=== PATIENT | female | born 1975 | race Caucasian/White ===

== ENCOUNTER 2017-12-21 01:05 | Emergency (ER) | payer OTHER ==
[~2017-12-21] VITALS: Ht 167.6 cm; Wt 89.5 kg
[2017-12-21 01:31] VITALS: BP 120/79; PULSE 90; RESP 18; TEMP 98.7; O2SAT 100
[2017-12-21 02:55] VITALS: BP 138/54; PULSE 90; RESP 18; O2SAT 100
[2017-12-21] MEDS ORDERED: PRIL20TA2 (02:55)
--- NOTE | 2017-12-21 03:28 | PD ---
HPI Chief Complaint: Anxiety Time Seen by Provider: 03:14 Travel History International Travel<30 days: No Contact w/Intl Traveler<30days: No Traveled to known affect area: No History of Present Illness HPI 41yo F with PMH of panic attacks here with episode of feeling like her heart is racing. Said she feels it in her whole body but not like palpation. Said she also felt hot and cold but only cold in her extremities. She took 1/4 of her xanax that she had but didnt help. Pt is not feeling shaky all over. She said she has not been eating well since her gastric bypass 8 months ago. Denies any fever, chest pain, n/v, abdominal pain, focal weakness or numbness. PFSH Past Medical History Anxiety: Yes GERD: Yes Tetanus Vaccination: Unknown Influenza Vaccination: Yes ?: Not LMP: 2 Past Surgical History Cholecystectomy: Yes Other Surgery: Yes (gastric bypass, ovarian cyst removal) Social History Alcohol Use: No Tobacco Use: No Substance Use: No Allergies-Medications (Allergen,Severity, Reaction): Coded Allergies: Sulfa (Sulfonamide Antibiotics) (Verified Allergy, Severe, Hives, 12/21/17) shellfish derived (Verified Allergy, Severe, Swelling, 12/21/17) Reported Meds & Prescriptions Reported Meds & Active Scripts Active Reported Prilosec (Omeprazole Magnesium) 20 Mg Tab Review of Systems Except as stated in HPI: all other systems reviewed are Neg Physical Exam Narrative GENERAL: 41yo F in mild distress. SKIN: Focused skin assessment warm/dry. HEAD: Atraumatic. Normocephalic. EYES: Pupils equal and round at 3mm bilaterally. EOMI. ENT: No nasal bleeding or discharge. Mucous membranes pink and moist. NECK: Trachea midline. No JVD. CARDIOVASCULAR: Regular rate and rhythm. No murmur appreciated. RESPIRATORY: No accessory muscle use. Clear to auscultation. Breath sounds equal bilaterally. GASTROINTESTINAL: Abdomen soft, non-tender, nondistended. MUSCULOSKELETAL: No obvious deformities. No clubbing. No cyanosis. No edema. NEUROLOGICAL: Awake and alert. No obvious cranial nerve deficits. Motor grossly within normal limits. Sensation intact. Normal speech. PSYCHIATRIC: Anxious. Data Data Last Documented VS Vital Signs Date Time Temp Pulse Resp B/P (MAP) Pulse Ox O2 Delivery O2 Flow Rate FiO2 12/21/17 04:41 82 16 107/49 (68) 98 Room Air 12/21/17 01:31 98.7 Orders Orders Complete Blood Count With Diff (12/21/17 03:20) Basic Metabolic Panel (Bmp) (12/21/17 03:20) Magnesium (Mg) (12/21/17 03:20) Thyroid Stimulating Hormone (12/21/17 03:20) Electrocardiogram (12/21/17 ) Lorazepam Inj (Ativan Inj) (12/21/17 03:30) Ed Discharge Order (12/21/17 04:54) Labs Laboratory Tests Test 12/21/17 03:44 White Blood Count 10.1 TH/MM3 Red Blood Count 4.03 MIL/MM3 Hemoglobin 12.4 GM/DL Hematocrit 36.0 % Mean Corpuscular Volume 89.3 FL Mean Corpuscular Hemoglobin 30.7 PG Mean Corpuscular Hemoglobin Concent 34.4 % Red Cell Distribution Width 13.0 % Platelet Count 294 TH/MM3 Mean Platelet Volume 9.6 FL Neutrophils (%) (Auto) 79.0 % Lymphocytes (%) (Auto) 13.8 % Monocytes (%) (Auto) 6.2 % Eosinophils (%) (Auto) 0.8 % Basophils (%) (Auto) 0.2 % Neutrophils # (Auto) 8.0 TH/MM3 Lymphocytes # (Auto) 1.4 TH/MM3 Monocytes # (Auto) 0.6 TH/MM3 Eosinophils # (Auto) 0.1 TH/MM3 Basophils # (Auto) 0.0 TH/MM3 CBC Comment DIFF FINAL Differential Comment Blood Urea Nitrogen 19 MG/DL Creatinine 0.61 MG/DL Random Glucose 96 MG/DL Calcium Level 9.0 MG/DL Magnesium Level 2.1 MG/DL Sodium Level 138 MEQ/L Potassium Level 3.5 MEQ/L Chloride Level 102 MEQ/L Carbon Dioxide Level 30.0 MEQ/L Anion Gap 6 MEQ/L Estimat Glomerular Filtration Rate 109 ML/MIN Thyroid Stimulating Hormone 3rd Gen 5.930 uIU/ML [facility] Medical Decision Making Medical Screen Exam Complete: Yes Emergency Medical Condition: Yes Interpretation(s) EKG: NSR 84bpm. Normal axis. No ST segment elevation or depression. Differential Diagnosis Anxiety vs. electrolyte abnormality vs. dehydration vs. hyperthyroidism Narrative Course 41yo F with anxiety symptoms. Labs reviewed, no leukocytosis. H/H normal. magnesium normal. Electrolytes normal. TSH mildly elevated at 5.93. Informed pt and instructed her to follow up with her primary care physician for T4 follow up. Pt given ativan which helped with symptoms. HR is normal. Return precautions given. Diagnosis Primary Impression: Anxiety Patient Instructions: General Instructions Departure Forms: Tests/Procedures Additional Instructions: Your TSH is 5.93 today. Please follow up with your primary care physician regarding this and obtain an outpatient T4 level. Return to the ED if symptoms worsen. Med/Other Pt SpecificInfo: No Change to Meds Disposition: 01 DISCHARGE HOME Condition: Stable ParrishAdrianna gallagherkavita COLEY Dec 21, 2017 03:28
[2017-12-21] MEDS ORDERED: LORazepam 2 MG/ML VIAL IV PUSH ONE (03:30)
[2017-12-21 03:47] VITALS: BP 112/54; PULSE 90; RESP 16; O2SAT 100
[2017-12-21 04:02] LABS: BASOPHIL % 0.2 % (0.0-2.0); EOSINOPHIL # 0.1 TH/MM3 (0-0.4); EOSINOPHIL % 0.8 % (0.0-4.0); HEMOGLOBIN 12.4 GM/DL (11.6-15.3); LYMPH % 13.8 % (9.0-44.0); LYMPHOCYTE # 1.4 TH/MM3 (1.0-4.8); MEAN CELL VOLUME 89.3 FL (80.0-100.0); MEAN CORPUSCULAR HEMOGLOBIN 30.7 PG (27.0-34.0); MEAN CORPUSCULAR HGB CONC 34.4 % (32.0-36.0); MEAN PLATELET VOLUME 9.6 FL (7.0-11.0); MONO % 6.2 % (0.0-8.0); MONOCYTE # 0.6 TH/MM3 (0-0.9); PLATELET COUNT 294 TH/MM3 (150-450); RED BLOOD COUNT 4.03 MIL/MM3 (4.00-5.30); WHITE BLOOD COUNT 10.1 TH/MM3 (4.0-11.0)
[2017-12-21 04:17] LABS: MAGNESIUM 2.1 MG/DL (1.5-2.5)
[2017-12-21 04:21] LABS: CREATININE 0.61 MG/DL (0.50-1.00)
[2017-12-21 04:41] VITALS: BP 107/49; PULSE 82; RESP 16; O2SAT 98
[2017-12-21 05:10] VITALS: BP 101/50; PULSE 87; RESP 16; O2SAT 97
--- NOTE | 2017-12-21 21:12 | EKG ---
Date Performed: 12/21/2017 Time Performed: 03:48:18 PTAGE: 41 years EKG: Sinus rhythm NORMAL ECG NO PREVIOUS TRACING DOCTOR: Pal Dean Interpretating Date/Time 12/21/2017 21:10:42
== END 2017-12-21 05:42 | disposition home or self-care (01) ==
LOC: PHED 01:05
DX: F41.9 Anxiety disorder, unspecified (principal); Z98.84 Bariatric surgery status; Z88.2 Allergy status to sulfonamides; Z91.013 Allergy to seafood
CPT/HCPCS: 80048; 83735; 84443; 85025; 93005; 96374; 99284; J2060